=== PATIENT | male | born 1990 | race African-American/Black ===

== ENCOUNTER 2018-05-13 13:55 | Emergency (ER) | payer OTHER ==
[2018-05-13 14:12] LABS: BASOPHIL COUNT 0.1 K/uL (0-0.1); EOSINOPHIL (%) 6.6 % (0-5); EOSINOPHIL COUNT 0.3 K/uL (0-0.3); HEMATOCRIT 38.2 % (38.0-50.0); HEMOGLOBIN 12.5 G/DL (12.5-16.6); IMMATURE GRANULOCYTE (%) 0.2 % (0.0-0.7); LYMPHOCYTE (%) 20.4 % (15-42); MCHC 32.7 G/DL (30.0-36.0); MCV 91.8 FL (86-99); MONOCYTE (%) 6.2 % (3-12); MONOCYTE COUNT 0.3 K/uL (0-0.8); NEUTROPHIL (%) 65.6 % (45-76); NEUTROPHIL COUNT 3.3 K/uL (1.8-6.4); PLATELET COUNT 160 K/uL (156-360); RBC DIS.WIDTH-SD 37.3 % (39-53); RED BLOOD COUNT 4.16 M/uL (4.00-5.50)
[2018-05-13 14:21] LABS: AMYLASE 79 IU/L (1-118); CHLORIDE 107 mEq/L (99-109); POTASSIUM 4.2 mEq/L (3.7-5.4); SODIUM 141 mEq/L (136-147)
[2018-05-13 14:23] LABS: GLUCOSE 73 mg/dL (70-99)
[2018-05-13 14:26] LABS: CREATININE 1.1 mg/dL (0.6-1.3); SERUM ETHYL ALCOHOL < 10 mg/dL
[2018-05-13 14:27] LABS: UREA NITROGEN (BUN) 12 mg/dL (9-23)
[2018-05-13 14:29] LABS: GFR ESTIMATE (CALCULATED) > 59 mL/min/ (58.99-99999); LIPASE 23 U/L (1.0-51.0)
[2018-05-13] MEDS ORDERED: PERCOCET 5/31 TABLET PO (15:19)
[2018-05-13] MEDS ORDERED: FLEXERIL10 MG PO (15:19)
[2018-05-13 15:28] LABS: APPEARANCE CLEAR ((CLEAR)); BILIRUBIN NEGATIVE; BLOOD NEGATIVE; COLOR YELLOW ((YELLOW)); GLUCOSE (STRIP) NEGATIVE; KETONES NEGATIVE; LEUKOCYTES NEGATIVE; NITRITE NEGATIVE; PROTEIN (STRIP) NEGATIVE; SPECIFIC GRAVITY 1.049 (1.000-1.030); UCUL ADDED? NO; UROBILINOGEN 0.2 MG/DL (0.2-1.0)
[2018-05-13 15:36] LABS: AMPHETAMINE NEGATIVE (500 ng/mL); BARBITURATES NEGATIVE (200 ng/mL); BENZODIAZEPINES NEGATIVE (150 ng/mL); COCAINE NEGATIVE (150 ng/mL); METHADONE NEGATIVE (200 ng/mL); METHAMPHETAMINE NEGATIVE (500 ng/mL); OPIATES (MORPHINE) NEGATIVE (100 ng/mL); PHENCYCLIDINE NEGATIVE (25 ng/mL); THC CANNABINOIDS NEGATIVE (50 ng/mL); TRICYCLIC ANTIDEPRESSANTS NEGATIVE (300 ng/mL)
[2018-05-13 15:37] LABS: BUPRENORPHINE NEGATIVE (10 ng/mL); OXYCODONE PRESUMPTIVE POSITIVE (100 ng/mL); PROPOXYPHENE NEGATIVE (300 ng/mL)
== END 2018-05-13 16:15 | disposition home or self-care (01) ==
LOC: TRA 13:55
PROVIDERS: Emergency Medicine
PROC: 3E0234Z Introduction of Serum, Toxoid and Vaccine into Muscle, Percutaneous Approach (ICD-10-PCS; principal; 2018-05-13)
DX: S20.211A Contusion of right front wall of thorax, initial encounter (principal); S80.812A Abrasion, left lower leg, initial encounter; S80.811A Abrasion, right lower leg, initial encounter; M25.512 Pain in left shoulder; M79.602 Pain in left arm; R32 Unspecified urinary incontinence; Z23 Encounter for immunization; V67.5XXA Driver of heavy transport vehicle injured in collision with fixed or stationary object in traffic accident, initial encounter; Y92.410 Unspecified street and highway as the place of occurrence of the external cause; I10 Essential (primary) hypertension
CPT/HCPCS: 70450; 71045; 71260; 72125; 72129; 72132; 73590; 74177; 80048; 81003; 82150; 83690; 85025; 86850; 86900; 86901; 93005; G0480; J3010